=== PATIENT | female | born 1945 | race Caucasian/White ===

== ENCOUNTER 2023-09-08 06:24 | Outpatient (RCR) | payer OTHER, SELFPAY | END 2023-09-08 23:59 | disposition home or self-care (01) | LOC: RPT 06:24 | PROVIDERS: ATTENDING PHYSICIAN Hospitalist; FAMILY PHYSICIAN Family Medicine | DX: R26.89 Other abnormalities of gait and mobility (principal); Z73.6 Limitation of activities due to disability | CPT/HCPCS: 97110; 97112 ==

== ENCOUNTER 2023-10-06 12:53 | Outpatient (RCR) | payer OTHER, SELFPAY | END 2023-10-06 13:55 | disposition home or self-care (01) | LOC: RPT 12:53 | PROVIDERS: ATTENDING PHYSICIAN Hospitalist; FAMILY PHYSICIAN Family Medicine | DX: R26.89 Other abnormalities of gait and mobility (principal); Z73.6 Limitation of activities due to disability; M62.81 Muscle weakness (generalized) | CPT/HCPCS: 97110; 97112 ==

== ENCOUNTER → 2023-11-03 07:30 | Outpatient (REF) | payer OTHER, SELFPAY | LOC: HWRAD 07:30 | PROVIDERS: ATTENDING PHYSICIAN Family Medicine | DX: I72.8 Aneurysm of other specified arteries (principal) | CPT/HCPCS: 74176 ==

== ENCOUNTER → 2023-12-14 14:47 | Outpatient (REF) | payer OTHER, SELFPAY | LOC: HWRAD 14:47 | PROVIDERS: ATTENDING PHYSICIAN Surgery Vascular Surgery; FAMILY PHYSICIAN Family Medicine | DX: I72.8 Aneurysm of other specified arteries (principal) | CPT/HCPCS: 74174; Q9967 ==

== ENCOUNTER → 2024-04-09 11:04 | Outpatient (REF) | payer OTHER, SELFPAY | LOC: HWWDC 11:04 | PROVIDERS: ATTENDING PHYSICIAN Family Medicine | DX: Z12.31 Encounter for screening mammogram for malignant neoplasm of breast (principal) | CPT/HCPCS: 77063; 77067 ==

== ENCOUNTER 2024-06-09 11:11 | Emergency (ER) | payer OTHER, SELFPAY ==
[2024-06-09 11:19] VITALS: BP 143/96
[2024-06-09 11:40] VITALS: BP 141/65
[2024-06-09 11:54] VITALS: BMI 40.6
--- NOTE | 2024-06-09 12:02 | ED.GENMED ---
History of Present Illness
General
Chief Complaint: Skin Problem
Source: patient and spouse
Time Seen by Provider: 06/09/24 11:45
History of Present Illness
History of Present Illness:
78-year-old female presents the emergency room at the advice of a visiting nurse. There is concern she could be developing infection in her right lower extremity. Patient suffered a fall several days ago fell down flight of steps. She was
evaluated by trauma at [facility]. She was discovered to have compression fractures at the T2 and T3 level. She also was noted to have open wounds bilateral lower extremities. These have been treated with local wound care. Patient is noting
increased pain in the right lower extremity. Also increased redness around the wound. Patient denies any fever, chills, nausea vomiting. She does not feel systemically ill. Patient has a follow-up appointment with Dr. Dominguez at [facility]
tomorrow at 11.
Past History
Past History
ED Past Medical History: Cancer (Breast cancer 1991), HTN, Hypercholesterolemia and Hypothyroidism
ED Past Surgical History: Gynecological (D&C), Orthopedic (Hip replacement) and Other (Thyroidectomy 1993)
Social History
Tobacco: Former smoker
Alcohol: Occasional
Personal:
Living: with family
Employment: Not employed
Family History
Family History: Other (Father with a history of WI, CABG mother with WI)
Phy Exam
Physical Exam
Physical Exam:
General: Awake, Alert, Oriented X3. No acute distress.
Vitals: unremarkable
Head: Atraumatic
Eyes: Pupils equal, EOMI
Throat: Airway intact, no exudates
Neck: Trachea midline
Lungs: Clear and equal b/l
Heart: Regular rate, no murmurs
Abd: Soft, Nontender, No pulsatile mass
Neuro: Nonfocal
Skin: Warm, dry, no rash
Extremities: pulses equal b/l, open wounds noted bilateral lower legs. These were dressed with Xeroform. Right lower extremity noted to have surrounding erythema. There is some eschar noted over the wound. No significant purulent discharge.
Course
Orders/Labs/Results
Orders:
Orders
06/09/24 12:01
Cephalexin Monohydrate [Keflex] 500 mg PO NOW STA
Vital Signs
Initial and Last Documented VS:
Initial Vital Signs
Temp Pulse Resp BP Pulse Ox
98.0 F 92 18 143/96 94
06/09/24 11:19 06/09/24 11:19 06/09/24 11:19 06/09/24 11:19 06/09/24 11:19
Last Documented Vital Signs
Temp Pulse Resp BP Pulse Ox
98.0 F 85 18 141/65 92
06/09/24 11:19 06/09/24 11:45 06/09/24 11:19 06/09/24 11:40 06/09/24 11:42
MDM/Problems Addressed
Differential Diagnosis Includes:
Cellulitis, wound infection, abscess
MDM/Problems Addressed:
Patient has increasing pain. I would agree that wound care is to be somewhat active. Will start on it. She is not systemically ill and I do not believe requires inpatient care at this point. Wound clinic benefit from some debridement and wound
care. She is scheduled to see surgery tomorrow at 11. They are probably better served to do this.
*Pulse Oximetry
Patient hypoxic: no
*Critical Care Note
Total Time (30-74mins, 75-104mins- exclusive of procedures): Not Applicable
ED Attending Note
-
Portions of this chart may have been created with voice recognition software.� Occasional wrong word or��sound alike� substitutions may have occurred due to the inherent limitations of voice recognition software.
Discharge Plan
Departure
Patient Disposition: Home (Routine Discharge)
Date of Disposition: 06/09/24
Time of Disposition: 12:05
Patient with high blood pressure during this ER visit?: Yes
Condition: Good
Discharge Problem:
Posttraumatic wound infection
Instructions: Wound Infection
Prescriptions:
New
cephalexin 500 mg capsule
500 mg PO QID 7 Days Qty: 28 0RF
No Action
beta carotene 5,000 unit Capsule
7,500 unit PO DAILY Qty: 0
omega 3-huc-spf-fish oil [Fish Oil] 1,200 (144-216) mg Capsule
2 cap PO DAILY Qty: 0
Caltrate 600 plus D 1 EACH tablet,chewable
1 tab PO DAILY
ascorbic acid (vitamin C) [Vitamin C] 500 MG tablet
1,000 mg PO DAILY
raloxifene 60 MG tablet
60 mg PO DAILY Qty: 0 0RF
aspirin 81 MG tablet,delayed release (DR/EC)
81 mg PO DAILY
selenium 100 MCG tablet
200 mcg PO DAILY
Patient Comments:
pt unsure of dose
levothyroxine 137 mcg Tablet
137 mcg PO DAILY
vitamin B complex Tablet
1 tab PO DAILY
vitamin E 268 mg (400 unit) Capsule
180 mg PO DAILY
psgkidjgtwjr-fhcxggho-dozbao Tablet
1 tab PO DAILY
cholecalciferol (vitamin D3) 125 mcg (5,000 unit) Tablet
125 mcg PO DAILY
atorvastatin 40 mg tablet
40 mg PO HS Qty: 30 0RF
Referrals:
[facility] -
Activity Restrictions/Additional Instructions:
Follow up with Dr. Dominguez at trauma clinic tomorrow as scheduled. I have provided you with the contact information for the wound care center here at [place].
Interventions
Interventions:
*Risk Screen - Suicide Last Done: 06/09/24 11:54
*General Assessment Last Done: 06/09/24 11:54
*Neglect/Abuse Screening Last Done: 06/09/24 11:54
*ED COVID-19 Vaccine History Last Done: 06/09/24 11:54
*Nursing Disposition Last Done: 06/09/24 12:42
ED-Skin Assessment Last Done: 06/09/24 11:56
Discharge Date and Time
Discharge Date/Time: 06/09/24 12:43
Print Language: [id number]
[2024-06-09] MEDS: KEFLEX 500 MG PO (12:06)
== END 2024-06-09 12:43 | disposition home or self-care (01) ==
LOC: EMR 11:11
PROVIDERS: EMERGENCY PHYSICIAN Emergency Medicine; FAMILY PHYSICIAN Family Medicine
DX: M79.604 Pain in right leg (principal); S81.802A Unspecified open wound, left lower leg, initial encounter; S81.801A Unspecified open wound, right lower leg, initial encounter; S22.039A Unspecified fracture of third thoracic vertebra, initial encounter for closed fracture; S22.029A Unspecified fracture of second thoracic vertebra, initial encounter for closed fracture; T79.8XXA Other early complications of trauma, initial encounter; L53.9 Erythematous condition, unspecified; W10.9XXA Fall (on) (from) unspecified stairs and steps, initial encounter; I10 Essential (primary) hypertension; E03.9 Hypothyroidism, unspecified; E78.00 Pure hypercholesterolemia, unspecified; Z79.82 Long term (current) use of aspirin; Z96.649 Presence of unspecified artificial hip joint; Z85.3 Personal history of malignant neoplasm of breast; Z87.891 Personal history of nicotine dependence
CPT/HCPCS: 99283

== ENCOUNTER 2024-09-10 07:27 | Outpatient (RCR) | payer OTHER, SELFPAY | END 2024-09-10 23:59 | disposition home or self-care (01) | LOC: RPT 07:27 | PROVIDERS: ATTENDING PHYSICIAN Physician Assistant Surgical; FAMILY PHYSICIAN Family Medicine | DX: M17.0 Bilateral primary osteoarthritis of knee (principal); Z73.6 Limitation of activities due to disability | CPT/HCPCS: 97110; 97163 ==

== ENCOUNTER 2024-10-11 08:50 | Outpatient (RCR) | payer OTHER, SELFPAY | END 2024-10-11 23:59 | disposition home or self-care (01) | LOC: RPT 08:50 | PROVIDERS: ATTENDING PHYSICIAN Physician Assistant Surgical; FAMILY PHYSICIAN Family Medicine | DX: M17.0 Bilateral primary osteoarthritis of knee (principal); Z73.6 Limitation of activities due to disability | CPT/HCPCS: 97110; 97112 ==

== ENCOUNTER 2024-11-08 08:50 | Outpatient (RCR) | payer OTHER, SELFPAY | END 2024-11-08 23:59 | disposition home or self-care (01) | LOC: RPT 08:50 | PROVIDERS: ATTENDING PHYSICIAN Physician Assistant Surgical; FAMILY PHYSICIAN Family Medicine | DX: M17.0 Bilateral primary osteoarthritis of knee (principal); Z73.6 Limitation of activities due to disability; R26.89 Other abnormalities of gait and mobility | CPT/HCPCS: 97110; 97112; 97530 ==

== ENCOUNTER 2024-12-06 08:48 | Outpatient (RCR) | payer OTHER, SELFPAY | END 2024-12-06 23:59 | disposition home or self-care (01) | LOC: RPT 08:48 | PROVIDERS: ATTENDING PHYSICIAN Physician Assistant Surgical; FAMILY PHYSICIAN Family Medicine | DX: M17.0 Bilateral primary osteoarthritis of knee (principal); R26.89 Other abnormalities of gait and mobility; Z73.6 Limitation of activities due to disability | CPT/HCPCS: 97110; 97112; 97530 ==

== ENCOUNTER 2025-01-07 08:48 | Outpatient (RCR) | payer OTHER, SELFPAY | END 2025-01-07 23:59 | disposition home or self-care (01) | LOC: RPT 08:48 | PROVIDERS: ATTENDING PHYSICIAN Physician Assistant Surgical; FAMILY PHYSICIAN Family Medicine | DX: M17.0 Bilateral primary osteoarthritis of knee (principal); R26.89 Other abnormalities of gait and mobility; Z73.6 Limitation of activities due to disability | CPT/HCPCS: 97110; 97112 ==

== ENCOUNTER → 2025-04-10 10:22 | Outpatient (REF) | payer OTHER, SELFPAY | LOC: HWWDC 10:22 | PROVIDERS: ATTENDING PHYSICIAN Family Medicine | DX: Z12.31 Encounter for screening mammogram for malignant neoplasm of breast (principal) | CPT/HCPCS: 77063; 77067 ==

== ENCOUNTER → 2025-04-22 10:08 | Outpatient (REF) | payer OTHER, SELFPAY | LOC: WDC 10:08 | PROVIDERS: ATTENDING PHYSICIAN Family Medicine | DX: R92.8 Other abnormal and inconclusive findings on diagnostic imaging of breast (principal) | CPT/HCPCS: 77065 ==

== ENCOUNTER 2025-05-06 06:20 | Day surgery (SDC) | payer OTHER, SELFPAY | END 2025-05-06 10:34 | disposition home or self-care (01) | LOC: GI 06:20 | PROVIDERS: ATTENDING PHYSICIAN Internal Medicine Gastroenterology | DX: Z12.11 Encounter for screening for malignant neoplasm of colon (principal); D12.2 Benign neoplasm of ascending colon; K63.5 Polyp of colon; Q39.9 Congenital malformation of esophagus, unspecified; R05.3 Chronic cough; K22.89 Other specified disease of esophagus; K44.9 Diaphragmatic hernia without obstruction or gangrene; R12 Heartburn; Z86.0100 Personal history of colon polyps, unspecified | CPT/HCPCS: 45380; 43235; 88305 ==

== ENCOUNTER → 2025-06-11 08:44 | Outpatient (REF) | payer OTHER, SELFPAY | LOC: RAD 08:44 | PROVIDERS: ATTENDING PHYSICIAN Physician Assistant Surgical; FAMILY PHYSICIAN Family Medicine | DX: M25.561 Pain in right knee (principal) | CPT/HCPCS: 76881 ==

== ENCOUNTER → 2025-07-04 12:59 | Outpatient (REF) | payer OTHER, SELFPAY | LOC: HWRAD 12:59 | PROVIDERS: ATTENDING PHYSICIAN Nurse Practitioner; FAMILY PHYSICIAN Family Medicine | DX: N95.0 Postmenopausal bleeding (principal) | CPT/HCPCS: 76856 ==